=== PATIENT | female | born 1985 | race Caucasian/White ===

== ENCOUNTER 2017-03-06 10:51 | Emergency (ER) | payer OTHER ==
--- NOTE | 2017-03-06 11:21 | EDPHY ---
HPI/HX/ROS/PE/MDM Narrative: CHIEF COMPLAINT: Headache with paresthesias HPI: This patient is a normally healthy 31 year old female who presents to the Emergency Department complaining of an acute headache and scalp paresthesias first presenting two days prior to arrival and worsening over time. She first experienced a burning sensation to her left occipital scalp which has since migrated to include her entire scalp and the posterior aspect of her neck. She describes her headache as diffuse and mild. She does have a history of mild headaches relieved by caffeine. Caffeine use has not alleviated her current headache, nor has Advil. She also reports three brief episodes of dyspnea yesterday and one today that she describes as difficulty catching her breath. She is unsure if she was anxious at that time. She denies chest pain. REVIEW OF SYSTEMS: Aside from elements discussed in the HPI, a comprehensive 10-point review of systems was reviewed and is negative. PMH: Denies SOCIAL HISTORY: Non-smoker. Works for a bank. PHYSICAL EXAM: General:Patient is alert, in no acute distress. ENT:Eyes are normal to inspection. ENT inspection normal. Neck: Normal inspection. Full range of motion. Respiratory:No respiratory distress. Breath sounds normal bilaterally. Cardiovascular: Regular rate and rhythm. Strong peripheral pulses. Normal cap refill. Abdomen:The abdomen is nontender to palpation. There are no peritoneal signs. There are normal bowel sounds. Back: Normal to inspection. No tenderness to palpation. Skin: Normal color. No rash. Warm and dry. Extremities: Normal appearance. Full range of motion. Neuro: Oriented x3. Normal motor function. Normal sensory function. ED Course: EKG INTERPRETATION: EKG was ordered and interpreted by myself. Please see [employer] system for official reading. ED COURSE: I discussed with her the option of proceeding with a CT of the head, though my suspicion is low for CVA, tumor, or other structural abnormalities. She does wish to proceed with imaging. She also complains of episodic dyspnea for which I will order an EKG and proceed with labs, including troponin. EKG obtained and is normal. 1230: Imaging results reported to me and are negative. I discussed lab, EKG, and imaging results with the patient who is relieved. She will be discharged home with return precautions and instructions to follow-up with her PCP for further evaluation. MDM: This is a young healthy female who presents with a burning sensation to her scalp and occasional SOB. We performed an extensive workup including CTH, labs and ECG, all of which are negative. I explained to the patient that the etiology of her symptoms is unknown but see no signs of ACS, CVA, SAH ,SDH, PE. I offered the patient further workup in the ED but she declines and would like to go home. We discussed strict return precautions. - Data Points Laboratory Results: Laboratory Results 03/06/17 11:40 03/06/17 11:40 03/06/17 03/06/17 03/06/17 11:40 11:40 11:40 WBC 5.95 10^3/uL 10^3/uL (3.80-9.50) RBC 4.52 10^6/uL 10^6/uL (4.18-5.33) Hgb 14.1 g/dL g/dL (12.6-16.3) Hct 40.1 % % (38.0-47.0) MCV 88.7 fL fL (81.5-99.8) MCH 31.2 pg pg (27.9-34.1) MCHC 35.2 g/dL g/dL (32.4-36.7) RDW 12.2 % % (11.5-15.2) Plt Count 270 10^3/uL 10^3/uL (150-400) MPV 9.8 fL fL (8.7-11.7) Neut % (Auto) 67.7 % % (39.3-74.2) Lymph % (Auto) 23.0 % % (15.0-45.0) Wharton % (Auto) 6.9 % % (4.5-13.0) Eos % (Auto) 1.2 % % (0.6-7.6) Baso % (Auto) 0.7 % % (0.3-1.7) Nucleat RBC Rel Count 0.0 % % (0.0-0.2) Absolute Neuts (auto) 4.03 10^3/uL 10^3/uL (1.70-6.50) Absolute Lymphs (auto) 1.37 10^3/uL 10^3/uL (1.00-3.00) Absolute Monos (auto) 0.41 10^3/uL 10^3/uL (0.30-0.80) Absolute Eos (auto) 0.07 10^3/uL 10^3/uL (0.03-0.40) Absolute Basos (auto) 0.04 10^3/uL 10^3/uL (0.02-0.10) Absolute Nucleated RBC 0.00 10^3/uL 10^3/uL (0-0.01) Immature Gran % 0.5 % % (0.0-1.1) Immature Gran # 0.03 10^3/uL 10^3/uL (0.00-0.10) Sodium 140 mEq/L mEq/L (134-144) Potassium 4.1 mEq/L mEq/L (3.5-5.2) Chloride 105 mEq/L mEq/L (97-110) Carbon Dioxide 25 mEq/l mEq/l (22-31) Anion Gap 10 mEq/L mEq/L (8-16) BUN 11 mg/dL mg/dL (7-23) Creatinine 0.6 mg/dL mg/dL (0.6-1.0) Estimated GFR > 60 Glucose 84 mg/dL mg/dL (70-100) Calcium 9.8 mg/dL mg/dL (8.5-10.4) Troponin I < 0.012 ng/mL ng/mL (0-0.034) Beta HCG, Qual NEGATIVE General Time Seen by Provider: 03/06/17 11:09 Initial Vital Signs: Initial Vital Signs Temperature (C) 36.7 C 03/06/17 11:00 Heart Rate 92 03/06/17 11:00 Respiratory Rate 18 03/06/17 11:00 Blood Pressure 106/82 H 03/06/17 11:00 O2 Sat (%) 97 03/06/17 11:00 O2 Delivery Mode Room Air Allergies/Adverse Reactions: No Known Allergies Allergy (Unverified 03/06/17 11:06) Home Medications: Medication Instructions Recorded NK [No Known Home Meds] 03/06/17 Departure - Departure Disposition: Home, Routine, Self-Care Clinical Impression: Headache Qualifiers: Headache type: unspecified Headache chronicity pattern: acute headache Intractability: not intractable Qualified Code(s): R51 - Headache Condition: Good Instructions: General Headache (ED) Additional Instructions: 1. Take 450mg Ibuprofen every 6 hours as needed for headache. 2. Follow-up with your primary care provider in the next 3-5 days if your symptoms have not completely resolved by then. 3. Return to the Emergency Department with severe headache, blurred vision, numbness or tingling to one side of your face or body, weakness, or other serious concerns. Referrals: [facility] [Other] - As per Instructions Report Scribed for: Oliver Trejo Report Scribed by: Kristal Millard Date of Report: 03/06/17 Time of Report: 11:21 Physician Review and Approval Statement: Portions of this note were transcribed by an ED scribe. I personally performed the history, physical exam, and medical decision making; and confirm the accuracy of the information in the transcribed note.
[2017-03-06 11:47] LABS: % IMMATURE GRANULYOCYTES 0.5 % (0.0-1.1); ABSOLUTE IMMATURE GRANULOCYTES 0.03 10^3/uL (0.00-0.10); ADD DIFF? NO; ADD MORPH? NO; ADD SCAN? NO; ATYPICAL LYMPHOCYTE FLAG 20 (0-99); FRAGMENT RBC FLAG 0 (0-99); HEMATOCRIT 40.1 % (38.0-47.0); HEMOGLOBIN 14.1 g/dL (12.6-16.3); LEFT SHIFT FLG 0 (0-99); LIPEMIA HEMOLYSIS FLAG 90 (0-99); MEAN CELL HEMOGLOBIN 31.2 pg (27.9-34.1); MEAN CELL HEMOGLOBIN CONCENTR. 35.2 g/dL (32.4-36.7); MEAN CELL VOLUME 88.7 fL (81.5-99.8); MEAN PLATELET VOLUME 9.8 fL (8.7-11.7); PLATELET CLUMPS FLAG 10 (0-99); PLATELET COUNT 270 10^3/uL (150-400); RED BLOOD CELL COUNT 4.52 10^6/uL (4.18-5.33); RED CELL DISTRIBUTION WIDTH 12.2 % (11.5-15.2)
[2017-03-06 12:03] LABS: ANION GAP 10 mEq/L (8-16); CALCIUM 9.8 mg/dL (8.5-10.4); CARBON DIOXIDE 25 mEq/l (22-31); CHLORIDE 105 mEq/L (97-110); CREATININE 0.6 mg/dL (0.6-1.0); GLOMERULAR FILTRATION RATE > 60; GLUCOSE 84 mg/dL (70-100); POTASSIUM 4.1 mEq/L (3.5-5.2); SODIUM 140 mEq/L (134-144)
--- NOTE | 2017-03-06 12:13 | CPEKG ---
Heart Rate: 70 RR Interval: 857 P-R Interval: 152 QRSD Interval: 84 QT Interval: 392 QTC Interval: 423 P Montague: 64 QRS Montague: 74 T Wave Montague: 44 EKG Severity - NORMAL ECG - EKG Impression: SINUS RHYTHM Electronically Signed By: Oliver Trejo 06-Mar-2017 15:12:47
[2017-03-06 12:14] LABS: TROPONIN I < 0.012 ng/mL (0-0.034)
[2017-03-06 13:00] VITALS: BP 103/73; PULSE 80; RESP 16; TEMP 98.2; O2SAT 93
== END 2017-03-06 13:05 | disposition home or self-care (01) ==
DX: R51 Headache (principal)